=== PATIENT | male | born 1985 | race Two or more races ===

== ENCOUNTER 2023-03-20 14:58 | Inpatient (IN) ==
[2023-03-20] MEDS ORDERED: Piperacillin/Tazobac ADVAN 3.375 GM in NS 0.9% 100 ml BAG 100 ML IV ONE (15:29)
[2023-03-20] MEDS ORDERED: NS 0.9% 1000 ml BAG 1,000 ML IV ONE (15:51)
[2023-03-20 16:49] LABS: ABS Basophils 0.1 10^3/uL (0.0-0.1); ABS Eosinophils 0.3 10^3/uL (0.0-0.5); ABS Lymphocytes 2.5 10^3/uL (1.0-4.8); ABS Monocytes 0.9 10^3/uL (0.0-1.1); ABS Neutrophils 5.5 10^3/uL (1.5-7.6); ABS Nucleated RBC 0.01 10^3/ul; Eosinophil % 2.9 %; Hematocrit 47.2 % (38-53); Hemoglobin 16.5 g/dL (13.2-16.3); Lymphocyte % 27.1 %; Mean Corpuscular Volume 88.6 fL (80-97); Mean Platelet Volume 7.6 fL (7.5-11.2); Nucleated Red Blood Cells % 0.1 /100 WBC (0.0-0.4); Platelet Count 390 10^3/uL (150-450); Red Blood Count 5.33 10^6/uL (4.06-5.63); Red Cell Distribution Width 13.1 % (12-17); White Blood Count 9.3 10^3/uL (3.6-10.2)
[2023-03-20 17:06] LABS: Albumin 4.4 g/dL (3.2-5.2); Albumin/Globulin Ratio 1.4 (1-3); C Reactive Protein 15.28 mg/L (<8.01); Calcium 9.1 mg/dL (8.6-10.3); Creatinine, Serum 0.62 mg/dL (0.67-1.17); Globulin 3.1 g/dL (2-4); Potassium 3.6 mmol/L (3.5-5.0); Total Bilirubin 0.7 mg/dL (0.2-1.0); Total Protein 7.5 g/dL (6.4-8.9); eGFR CKD-EPI 127.8 (>60)
[2023-03-20] MEDS ORDERED: Zosyn per Pharmacy NOTE FOLLOW UP SCH (22:00)
[2023-03-20] MEDS ORDERED: Piperacillin/Tazobac 3.375 GM BAG ONE (22:23)
[2023-03-20] MEDS: ZOSYN 3.375 GM Q8H per EXTENDED INFUSION IV SCH (22:26)
[2023-03-21 06:56] LABS: ABS Basophils 0.1 10^3/uL (0.0-0.1); ABS Eosinophils 0.2 10^3/uL (0.0-0.5); ABS Lymphocytes 2.2 10^3/uL (1.0-4.8); ABS Monocytes 0.5 10^3/uL (0.0-1.1); ABS Neutrophils 3.9 10^3/uL (1.5-7.6); Eosinophil % 3.1 %; Hemoglobin 15.1 g/dL (13.2-16.3); Lymphocyte % 31.3 %; Mean Corpuscular Hemoglobin 31.1 pg (27-33); Mean Corpuscular Hgb Conc 35.1 g/dL (31-36); Mean Corpuscular Volume 88.4 fL (80-97); Mean Platelet Volume 7.6 fL (7.5-11.2); Nucleated Red Blood Cells % 0.1 /100 WBC (0.0-0.4); Platelet Count 361 10^3/uL (150-450); Red Blood Count 4.86 10^6/uL (4.06-5.63); Red Cell Distribution Width 13.1 % (12-17); White Blood Count 6.9 10^3/uL (3.6-10.2)
[2023-03-21 07:16] LABS: Calcium 8.7 mg/dL (8.6-10.3); Creatinine, Serum 0.75 mg/dL (0.67-1.17); Potassium 3.8 mmol/L (3.5-5.0); eGFR CKD-EPI 120.7 (>60)
[2023-03-21] MEDS: ZOSYN 3.375 GM Q8H per EXTENDED INFUSION IV SCH ×3 (10:46→16:41)
[2023-03-22] MEDS: ZOSYN 3.375 GM Q8H per EXTENDED INFUSION IV SCH ×4 (00:08→23:58)
[2023-03-22] MEDS ORDERED: Propofol 10 MG/ML 20 ML BTL ONE (09:51)
[2023-03-22] MEDS ORDERED: Lidocaine 2% PF 5 ML VIAL ONE (09:51)
[2023-03-22] MEDS ORDERED: Midazolam 2 mg/2 ml VIAL 1 mg/ml 2 ml VIAL (2 mg) ONE (09:54)
[2023-03-22] MEDS ORDERED: fentaNYL 100 mcg/2 ml 50 MCG/ML VIAL ONE (09:54)
[2023-03-22] MEDS ORDERED: Famotidine IV 10 MG/ML 2 ml VIAL (20 mg) IV ONE (09:56)
[2023-03-22] MEDS ORDERED: Buffered Lidocaine 1% SYRIN 1 ml INTRADERM ONE (09:56)
[2023-03-22] MEDS ORDERED: HYDROcodone/ACETAMIN 5/325 mg TAB PO PRN (09:57)
[2023-03-22] MEDS ORDERED: Naloxone 0.4 mg VIAL 0.4 mg/ml 1 ml VIAL IV PRN (09:57)
[2023-03-22] MEDS ORDERED: oxyCODONE/Acetamin 5/325 mg TAB PO PRN (09:57)
[2023-03-22] MEDS ORDERED: fentaNYL 100 mcg/2 ml 50 MCG/ML VIAL IV PRN (09:57)
[2023-03-22] MEDS ORDERED: Prochlorperazine 5 mg/ml 2 ml VIAL (10 mg) IV PRN (09:57)
[2023-03-22] MEDS ORDERED: Gadoteridol (CONTRAST) 279.3 MG/ML 10 ML IV ONE (16:21)
[2023-03-23] MEDS: ZOSYN 3.375 GM Q8H per EXTENDED INFUSION IV SCH ×3 (08:37→22:09)
[2023-03-23 08:38] LABS: ABS Basophils 0.1 10^3/uL (0.0-0.1); ABS Eosinophils 0.3 10^3/uL (0.0-0.5); ABS Lymphocytes 2.4 10^3/uL (1.0-4.8); ABS Monocytes 0.6 10^3/uL (0.0-1.1); ABS Neutrophils 5.2 10^3/uL (1.5-7.6); ABS Nucleated RBC 0.01 10^3/ul; Hematocrit 44.7 % (38-53); Hemoglobin 15.4 g/dL (13.2-16.3); Lymphocyte % 28.4 %; Mean Corpuscular Hemoglobin 30.2 pg (27-33); Mean Corpuscular Hgb Conc 34.5 g/dL (31-36); Mean Corpuscular Volume 87.3 fL (80-97); Mean Platelet Volume 7.4 fL (7.5-11.2); Nucleated Red Blood Cells % 0.1 /100 WBC (0.0-0.4); Platelet Count 397 10^3/uL (150-450); Red Blood Count 5.12 10^6/uL (4.06-5.63); Red Cell Distribution Width 12.8 % (12-17); White Blood Count 8.6 10^3/uL (3.6-10.2)
[2023-03-23 08:55] LABS: C Reactive Protein 13.84 mg/L (<8.01); Calcium 9.4 mg/dL (8.6-10.3); Creatinine, Serum 0.84 mg/dL (0.67-1.17); Magnesium 2.1 mg/dL (1.9-2.7); Potassium 3.9 mmol/L (3.5-5.0); eGFR CKD-EPI 115.9 (>60)
[2023-03-23] MEDS ORDERED: Propofol 10 MG/ML 20 ML BTL ONE ×2 (14:27→16:16)
[2023-03-23] MEDS ORDERED: Lidocaine 2% PF 5 ML VIAL ONE ×2 (14:27→16:16)
[2023-03-23] MEDS ORDERED: fentaNYL 100 mcg/2 ml 50 MCG/ML VIAL ONE ×2 (16:16→18:00)
[2023-03-23] MEDS ORDERED: Midazolam 2 mg/2 ml VIAL 1 mg/ml 2 ml VIAL (2 mg) ONE (16:16)
[2023-03-23] MEDS ORDERED: ceFAZolin 2 GM in NS PREMIX 2 GM/100 ML BAG IVPB ONE (16:17)
[2023-03-23] MEDS ORDERED: Ondansetron 4 mg VIAL 2 MG/ML 2 ml VIAL ONE (16:47)
[2023-03-23] MEDS ORDERED: Dexamethasone IV 4 MG/ML VIAL 1 ml VIAL ONE ×2 (16:47→18:17)
[2023-03-23] MEDS ORDERED: Acetaminophen IV 1 GM/100ML 1,000 MG/100 ML BAG IV ONE (17:03)
[2023-03-23] MEDS ORDERED: Metoclopramide 5 MG/ML VIAL (10 mg) IV PRN (17:58)
[2023-03-23] MEDS ORDERED: Naloxone 0.4 mg VIAL 0.4 mg/ml 1 ml VIAL IV PRN (17:58)
[2023-03-23] MEDS ORDERED: HYDROcodone/ACETAMIN 5/325 mg TAB PO PRN (17:58)
[2023-03-23] MEDS ORDERED: Ondansetron 4 mg VIAL 2 MG/ML 2 ml VIAL IV PRN (17:58)
[2023-03-23] MEDS: fentaNYL 100 mcg/2 ml 50 MCG/ML VIAL IV PRN ×4 (18:02→18:15)
[2023-03-23] MEDS ORDERED: ROPIVACAINE 5 MG/ML 30 ML BTL (0.5%) ONE (18:17)
[2023-03-23] MEDS ORDERED: HYDROcodone/ACETAMIN 5/325 mg TAB ONE (18:44)
[2023-03-23] MEDS ORDERED: Sodium Citrate/Citric Acid LIQ 15 ML UDC ONE (18:45)
[2023-03-23] MEDS: Lactated Ringers 1000 ml BAG 1,000 ML IV SCH (20:53)
[2023-03-24] MEDS: Lactated Ringers 1000 ml BAG 1,000 ML IV SCH (04:46)
[2023-03-24] MEDS: ZOSYN 3.375 GM Q8H per EXTENDED INFUSION IV SCH (04:46)
[2023-03-24] MEDS ORDERED: ceFAZolin VIAL 2 GM in NS 0.9% 100 ml BAG 100 ML IVPB SCH (12:00)
[2023-03-24 14:32] VITALS: BP 131/70
== END 2023-03-24 15:15 | disposition home or self-care (01) | DRG 383 ==
LOC: EDHOLD 14:58 → ED 14:58 → SUATTDRO 21:50 → MED 03-21 00:42
PROVIDERS: ADMIT Hospitalist; ATTEND Hospitalist